=== PATIENT | female | born 1990 | race Caucasian/White ===

== ENCOUNTER 2019-09-07 17:32 | Emergency (ER) | payer MEDICAID ==
[~2019-09-07] VITALS: Ht 177.8 cm; Wt 60.6 kg
[~2019-09-07 17:32] MED LIST: DIPH-423 PO; IBUP-1984 PO; LIDOcaine 1% W/epiNEPHrine 1:100,000 20ml vial ONE; LORA1TAB PO; NO HOME MEDS; QUET-1 PO; ZIPR20CA2 PO; ZOF4T PO; no known home meds
[2019-09-07 17:57] VITALS: BP 127/78
[2019-09-07] MEDS ORDERED: BACDS PO (19:44)
== END 2019-09-07 20:00 | disposition home or self-care (01) ==
LOC: ER 17:33
DX: N76.4 Abscess of vulva (principal); F31.9 Bipolar disorder, unspecified; F12.90 Cannabis use, unspecified, uncomplicated; F15.90 Other stimulant use, unspecified, uncomplicated; Z90.49 Acquired absence of other specified parts of digestive tract; Z59.0 Homelessness; Z56.0 Unemployment, unspecified; Z88.8 Allergy status to other drugs, medicaments and biological substances; Z79.2 Long term (current) use of antibiotics; Z79.899 Other long term (current) drug therapy
CPT/HCPCS: 56405; 99284

== ENCOUNTER 2020-01-07 10:02 | Emergency (ER) | payer MEDICAID, OTHER ==
[~2020-01-07] VITALS: Ht 177.8 cm; Wt 61.4 kg
[~2020-01-07 10:02] MED LIST changes: -LIDOcaine 1% W/epiNEPHrine 1:100,000 20ml vial ONE
[2020-01-07 10:11] VITALS: BP 126/81
[2020-01-07] MEDS ORDERED: ERYT1OIN6 RIGHTEYE (10:32)
[2020-01-07] MEDS ORDERED: DOXY100C76 PO (10:32)
== END 2020-01-07 10:35 | disposition home or self-care (01) ==
LOC: ER 10:02
DX: H00.015 Hordeolum externum left lower eyelid (principal); L03.211 Cellulitis of face; F12.90 Cannabis use, unspecified, uncomplicated; F15.90 Other stimulant use, unspecified, uncomplicated; Z90.49 Acquired absence of other specified parts of digestive tract; Z59.0 Homelessness; Z56.0 Unemployment, unspecified; Z88.8 Allergy status to other drugs, medicaments and biological substances; Z79.899 Other long term (current) drug therapy
CPT/HCPCS: 99283

== ENCOUNTER 2020-01-21 09:48 | Emergency (ER) | payer MEDICAID, OTHER ==
[~2020-01-21] VITALS: Ht 177.8 cm; Wt 70.0 kg
[~2020-01-21 09:48] MED LIST changes: +ERYT1OIN6 RIGHTEYE
[2020-01-21] MEDS ORDERED: normal saline 1000ML IV soln IVB ONE (10:10)
[2020-01-21] MEDS ORDERED: LORazepam 2 mg/ml vial IV ONE (10:10)
--- NOTE | 2020-01-21 10:50 | NUR ---
US tech at bedside for study as ordered.
[2020-01-21 13:26] VITALS: BP 127/65
== END 2020-01-21 14:24 | disposition home or self-care (01) ==
LOC: ER 09:48
DX: O26.891 Other specified pregnancy related conditions, first trimester (principal); R10.31 Right lower quadrant pain; R10.2 Pelvic and perineal pain; F12.90 Cannabis use, unspecified, uncomplicated; F15.90 Other stimulant use, unspecified, uncomplicated; Z90.49 Acquired absence of other specified parts of digestive tract; Z59.0 Homelessness; Z56.0 Unemployment, unspecified; Z88.8 Allergy status to other drugs, medicaments and biological substances; Z79.899 Other long term (current) drug therapy; Z3A.10 10 weeks gestation of pregnancy
CPT/HCPCS: 76700; 76801; 76856; 96361; 96374; 99285; J2060; J7030; 76802

== ENCOUNTER 2020-01-24 08:12 | Emergency (ER) | payer MEDICAID, OTHER ==
[~2020-01-24] VITALS: Ht 172.7 cm; Wt 80.0 kg
[2020-01-24] MEDS ORDERED: diphenhydrAMINE 50 mg/ml inj IV ONE (08:25)
[2020-01-24] MEDS ORDERED: metoclopramide 5 mg/ml inj IV ONE (08:25)
[2020-01-24] MEDS ORDERED: normal saline 1000ML IV soln IVB ONE ×3 (08:25→10:45)
[2020-01-24 09:04] LABS: BASOPHILS % (AUTO) 0.3 % (0-1); EOSINOPHILS % (AUTO) 0.1 % (0-6); HEMATOCRIT 28.8 % (35.0-45.0); HEMOGLOBIN 9.6 g/dl (12.0-16.0); LYMPHOCYTES % (AUTO) 6.5 % (21-51); MEAN CORPUSCULAR HEMOGLOBIN 29.3 PG (27.0-31.0); MEAN CORPUSCULAR HGB CONC 33.4 g/dL (33.0-36.5); MEAN CORPUSCULAR VOLUME 87.9 FL (78-98); MEAN PLATELET VOLUME 7.2 FL (7.4-10.4); MONOCYTES # (AUTO) 0.5 X10'3 (0-0.9); MONOCYTES % (AUTO) 3.2 % (2-12); NEUTROPHILS # (AUTO) 13.9 X10'3 (1.8-7.7); NEUTROPHILS % (AUTO) 89.9 % (42-75); PLATELET COUNT 374 X10'3 (140-440); RED BLOOD COUNT 3.27 X10'6 (4.20-5.60); WHITE BLOOD COUNT 15.4 X10'3 (4.5-11.0)
[2020-01-24 09:40] LABS: ALANINE AMINOTRANSFERASE 15 U/L (12-78); ALBUMIN 4.1 G/DL (3.4-5.0); ALBUMIN/GLOBULIN RATIO 1.4 (1.1-1.5); ALKALINE PHOSPHATASE 41 IU/L (46-116); ANION GAP 16 (8-16); ASPARTATE AMINO TRANSFERASE 14 U/L (10-37); BILIRUBIN,TOTAL 0.6 MG/DL (0.1-1.0); CALCIUM 8.6 MG/DL (8.5-10.1); CHLORIDE 101 MMOL/L (99-107); CREATININE 1.13 MG/DL (0.40-0.90); GLUCOSE 175 MG/DL (70-104); LIPASE < 50 U/L (73-393); POTASSIUM 3.8 MMOL/L (3.5-5.1); SODIUM 139 MMOL/L (135-145); TOTAL CARBON DIOXIDE 21.6 MMOL/L (24-32); eGFR 57 ML/MIN
[2020-01-24 09:47] LABS: BLOOD UREA NITROGEN 18 MG/DL (7-18); BUN/CREATININE RATIO 15.9 (6.6-38.0)
[2020-01-24 09:49] LABS: BETA HCG,QUANTITATIVE 2636 mIU/ml
[2020-01-24] MEDS ORDERED: labetalol 20mg/4ml (5mg/ml) syringe IV ONE (10:00)
--- NOTE | 2020-01-24 10:01 | NUR ---
PT SLEEPING QUIETLY. NO ACUTE DISTRESS NOTED AT THIS TIME
--- NOTE | 2020-01-24 10:21 | NUR ---
US tech at bedside.
[2020-01-24] MEDS ORDERED: ondansetron/PF 4mg/2ml inj IV ONE (10:45)
[2020-01-24] MEDS ORDERED: morphine 4 MG/ML inj SYRINge IV PRN (10:45)
[2020-01-24 11:23] LABS: CLARITY,URINE CLOUDY (Clear); COLOR,URINE YELLOW (Yellow); GLUCOSE, URINE NEGATIVE (Neg); KETONES,URINE TRACE mg/dl (Neg); LEUKOCYTE ESTERASE ,URINE NEGATIVE (Neg); NITRITES, URINE NEGATIVE (Neg); OCCULT BLOOD,URINE NEGATIVE (Neg); PH,URINE 5.5 (4.8-8.0); PROTEIN,URINE TRACE mg/dl (Neg); UA COLLECTION TYPE CLN CATCH MIDSTREAM; UROBILINOGEN,URINE 0.2 E.U/dL (0.2-1.0)
[2020-01-24 11:29] LABS: HYALINE CASTS >30 /LPF (NEGATIVE); MUCUS STRANDS MANY /LPF (Neg); SQUAMOUS EPITHELIAL CELL,UR MODERATE /LPF (FEW)
[2020-01-24 11:30] LABS: CAL OXALATE CRYSTALS 4+ /HPF (NEGATIVE); TRANSITIONAL EPI CELLS,URINE FEW /HPF
[2020-01-24 11:31] LABS: BACTERIA,URINE FEW /HPF (Neg); RBC,URINE 0-2 /HPF (0-2); URINE AMPHETAMINE SCREEN POSITIVE (Neg); URINE BARBITUATE SCREEN NEGATIVE (Neg); URINE BENZODIAZEPINES SCREEN NEGATIVE (Neg); URINE CANNABINOID SCREEN POSITIVE (Neg); URINE COCAINE SCREEN NEGATIVE (Neg); URINE METHADONE SCREEN NEGATIVE (Neg); URINE OPIATE SCREEN NEGATIVE (Neg); URINE PHENCYCLIDINE SCREEN NEGATIVE (Neg); WBC,URINE 0-4 /HPF (0-4)
--- NOTE | 2020-01-24 11:38 | NUR ---
report called to glenn pulido at [facility].
[2020-01-24 11:43] VITALS: BP 117/89
== END 2020-01-24 11:47 | disposition short-term general hospital (02) ==
LOC: ER 08:12
DX: O00.90 Unspecified ectopic pregnancy without intrauterine pregnancy (principal); R11.2 Nausea with vomiting, unspecified; F12.90 Cannabis use, unspecified, uncomplicated; F15.90 Other stimulant use, unspecified, uncomplicated; F17.210 Nicotine dependence, cigarettes, uncomplicated; Z90.49 Acquired absence of other specified parts of digestive tract; Z59.0 Homelessness; Z56.0 Unemployment, unspecified; Z79.2 Long term (current) use of antibiotics; Z79.899 Other long term (current) drug therapy; Z3A.01 Less than 8 weeks gestation of pregnancy
CPT/HCPCS: 36415; 76817; 80053; 80305; 81001; 83690; 84145; 84702; 85025; 96361; 96374; 96375; 99285; J1200; J2270; J2405; J2765; J7030; 99284

== ENCOUNTER 2020-05-03 18:10 | Emergency (ER) | payer MEDICAID, OTHER ==
[~2020-05-03] VITALS: Ht 177.8 cm; Wt 63.6 kg
[~2020-05-03 18:10] MED LIST changes: -ERYT1OIN6 RIGHTEYE
[2020-05-03 18:15] VITALS: BP 120/76
== END 2020-05-03 20:35 | disposition left against medical advice (07) ==
LOC: ER 18:10
DX: S80.261A Insect bite (nonvenomous), right knee, initial encounter (principal); Z53.21 Procedure and treatment not carried out due to patient leaving prior to being seen by health care provider; W57.XXXA Bitten or stung by nonvenomous insect and other nonvenomous arthropods, initial encounter; Y93.89 Activity, other specified; Y92.89 Other specified places as the place of occurrence of the external cause; Y99.8 Other external cause status

== ENCOUNTER 2020-06-10 04:53 | Emergency (ER) | payer MEDICAID ==
[~2020-06-10] VITALS: Ht 177.8 cm; Wt 63.2 kg
[2020-06-10] MEDS ORDERED: ondansetron/PF 4mg/2ml inj IV ONE ×2 (05:15→07:50)
[2020-06-10] MEDS: dextrose 5%-normal saline 1,000 ML IV SCH ×3 (05:29→07:15)
[2020-06-10 05:50] LABS: ALANINE AMINOTRANSFERASE 18 U/L (12-78); ALBUMIN 4.2 G/DL (3.4-5.0); ALBUMIN/GLOBULIN RATIO 1.1 (1.1-1.5); ALKALINE PHOSPHATASE 39 IU/L (46-116); ANION GAP 12 (8-16); ASPARTATE AMINO TRANSFERASE 13 U/L (10-37); BILIRUBIN,TOTAL 0.5 MG/DL (0.1-1.0); BLOOD UREA NITROGEN 15 MG/DL (7-18); BUN/CREATININE RATIO 20.8 (6.6-38.0); CALCIUM 9.3 MG/DL (8.5-10.1); CHLORIDE 103 MMOL/L (99-107); CREATININE 0.72 MG/DL (0.40-0.90); GLUCOSE 151 MG/DL (70-104); SODIUM 138 MMOL/L (135-145); TOTAL CARBON DIOXIDE 22.9 MMOL/L (24-32); TOTAL PROTEIN 7.9 G/DL (6.4-8.2); eGFR > 90 ML/MIN
--- NOTE | 2020-06-10 06:30 | NUR ---
pt unable to void at this time.Dr. Cisneros aware.
[2020-06-10] MEDS ORDERED: ONDA4TAB6 PO (06:31)
[2020-06-10] MEDS ORDERED: DOXY1TAB3 PO (06:34)
[2020-06-10 07:05] LABS: CLARITY,URINE CLEAR (Clear); COLOR,URINE YELLOW (Yellow); GLUCOSE, URINE >=1000 mg/dl (Neg); KETONES,URINE >=80 mg/dl (Neg); LEUKOCYTE ESTERASE ,URINE NEGATIVE (Neg); NITRITES, URINE NEGATIVE (Neg); OCCULT BLOOD,URINE NEGATIVE (Neg); PROTEIN,URINE NEGATIVE (Neg); UROBILINOGEN,URINE 0.2 E.U/dL (0.2-1.0)
[2020-06-10 07:06] LABS: UA COLLECTION TYPE CLN CATCH MIDSTREAM
[2020-06-10 07:18] LABS: BACTERIA,URINE NONE SEEN /HPF (Neg); MUCUS STRANDS FEW /LPF (Neg); RBC,URINE 0-2 /HPF (0-2); SQUAMOUS EPITHELIAL CELL,UR FEW /LPF (FEW); WBC,URINE 0-4 /HPF (0-4)
[2020-06-10 08:07] VITALS: BP 134/82
[2020-06-11] MEDS ORDERED: ONDA4TAB6 PO (19:35)
== END 2020-06-10 08:09 | disposition home or self-care (01) ==
LOC: ER 04:53
DX: O21.9 Vomiting of pregnancy, unspecified (principal); F31.9 Bipolar disorder, unspecified; F17.200 Nicotine dependence, unspecified, uncomplicated; F12.90 Cannabis use, unspecified, uncomplicated; Z90.49 Acquired absence of other specified parts of digestive tract; Z59.0 Homelessness; Z56.0 Unemployment, unspecified; Z88.8 Allergy status to other drugs, medicaments and biological substances; Z79.899 Other long term (current) drug therapy; Z3A.11 11 weeks gestation of pregnancy
CPT/HCPCS: 36415; 80053; 81001; 96374; 96376; 99284; J2405; J7042

== ENCOUNTER 2020-06-11 17:07 | Emergency (ER) | payer MEDICAID ==
[~2020-06-11 17:07] MED LIST changes: +DOXY1TAB3 PO; +ONDA4TAB6 PO
[2020-06-11] MEDS ORDERED: normal saline 1000ML IV soln IVB ONE (18:00)
[2020-06-11] MEDS ORDERED: ondansetron/PF 4mg/2ml inj IV ONE (18:00)
[2020-06-11] MEDS ORDERED: proCHLORperazine 10 MG/2 ml inj IV ONE (19:15)
[2020-06-11] MEDS ORDERED: diphenhydrAMINE 50 mg/ml inj IV ONE (19:15)
[2020-06-11] MEDS ORDERED: ONDA4TAB6 PO (19:35)
[2020-06-11 20:03] VITALS: BP 135/80
== END 2020-06-11 20:01 | disposition home or self-care (01) ==
LOC: ER 17:08
DX: O21.9 Vomiting of pregnancy, unspecified (principal); F31.9 Bipolar disorder, unspecified; F12.90 Cannabis use, unspecified, uncomplicated; Z59.0 Homelessness; Z56.0 Unemployment, unspecified; Z72.89 Other problems related to lifestyle; Z90.49 Acquired absence of other specified parts of digestive tract; Z3A.01 Less than 8 weeks gestation of pregnancy; Z37.9 Outcome of delivery, unspecified; Z88.8 Allergy status to other drugs, medicaments and biological substances; Z79.899 Other long term (current) drug therapy
CPT/HCPCS: 96361; 96374; 96375; 99284; J0780; J1200; J2405; J7030

== ENCOUNTER 2024-02-15 18:19 | Emergency (ER) | payer MEDICAID ==
[~2024-02-15] VITALS: Ht 177.8 cm; Wt 64.5 kg
[2024-02-15 19:26] VITALS: BP 114/83; PULSE 100; RESP 18; O2SAT 99
[2024-02-15 19:28] LABS: BASOPHILS % (AUTO) 0.7 % (0-1); EOSINOPHILS # (AUTO) 0.1 X10'3 (0-0.9); EOSINOPHILS % (AUTO) 1.1 % (0-6); HEMATOCRIT 41.6 % (35.0-45.0); LYMPHOCYTES # (AUTO) 2.5 X10'3 (1.1-4.8); LYMPHOCYTES % (AUTO) 38.4 % (21-51); MEAN CORPUSCULAR HEMOGLOBIN 29.4 PG (27.0-31.0); MEAN CORPUSCULAR HGB CONC 33.6 g/dL (33.0-36.5); MEAN CORPUSCULAR VOLUME 87.5 FL (78-98); MEAN PLATELET VOLUME 6.8 FL (7.4-10.4); MONOCYTES # (AUTO) 0.4 X10'3 (0-0.9); MONOCYTES % (AUTO) 6.8 % (2-12); NEUTROPHILS # (AUTO) 3.5 X10'3 (1.8-7.7); PLATELET COUNT 312 X10'3 (140-440); RED BLOOD COUNT 4.75 X10'6 (4.20-5.60); RED CELL DISTRIBUTION WIDTH 13.6 % (11.5-14.5); WHITE BLOOD COUNT 6.6 X10'3 (4.5-11.0)
[2024-02-15 19:31] LABS: BILIRUBIN,URINE NEGATIVE (Neg); CLARITY,URINE SLIGHTLY CLOUDY (Clear); COLOR,URINE YELLOW (Yellow); GLUCOSE, URINE NEGATIVE (Neg); KETONES,URINE TRACE mg/dl (Neg); LEUKOCYTE ESTERASE ,URINE NEGATIVE (Neg); NITRITES, URINE NEGATIVE (Neg); OCCULT BLOOD,URINE NEGATIVE (Neg); PROTEIN,URINE TRACE mg/dl (Neg); UROBILINOGEN,URINE 0.2 E.U/dL (0.2-1.0)
[2024-02-15 19:32] LABS: URINE HCG NEGATIVE (NEG)
[2024-02-15 19:33] LABS: UA COLLECTION TYPE CLN CATCH MIDSTREAM
[2024-02-15 19:37] LABS: RBC,URINE 0-2 /HPF (0-2); WBC,URINE 0-4 /HPF (0-4)
[2024-02-15 19:38] LABS: BACTERIA,URINE FEW /HPF (Neg); CAL OXALATE CRYSTALS 3+ /HPF (NEGATIVE); SQUAMOUS EPITHELIAL CELL,UR FEW /LPF (FEW)
[2024-02-15 19:44] LABS: URINE AMPHETAMINE SCREEN POSITIVE (Neg); URINE BARBITUATE SCREEN NEGATIVE (Neg); URINE BENZODIAZEPINES SCREEN NEGATIVE (Neg); URINE CANNABINOID SCREEN POSITIVE (Neg); URINE COCAINE SCREEN NEGATIVE (Neg); URINE METHADONE SCREEN NEGATIVE (Neg); URINE OPIATE SCREEN NEGATIVE (Neg); URINE PHENCYCLIDINE SCREEN NEGATIVE (Neg)
[2024-02-15 20:02] LABS: ANION GAP 11 (8-16); BLOOD UREA NITROGEN 13 MG/DL (7-18); BUN/CREATININE RATIO 15.7 (10.0-20.0); CALCIUM 9.3 MG/DL (8.5-10.1); CHLORIDE 104 MMOL/L (99-107); CREATININE 0.83 MG/DL (0.40-0.90); GLUCOSE 102 MG/DL (70-104); POTASSIUM 3.8 MMOL/L (3.5-5.1); SODIUM 140 MMOL/L (135-145); TOTAL CARBON DIOXIDE 25.3 MMOL/L (24-32); eCRCL 98 ML/MIN; eGFR 79 ML/MIN
[2024-02-15 20:03] LABS: ALANINE AMINOTRANSFERASE 12 U/L (12-78); ALBUMIN 4.6 G/DL (3.4-5.0); ALBUMIN/GLOBULIN RATIO 1.3 (1.1-1.5); ALKALINE PHOSPHATASE 67 IU/L (46-116); ASPARTATE AMINO TRANSFERASE 8 U/L (10-37); BILIRUBIN,TOTAL 0.4 MG/DL (0.1-1.0); TOTAL PROTEIN 8.2 G/DL (6.4-8.2)
[2024-02-15 20:11] LABS: ETHANOL 47 MG/DL (<10); SALICYLATE 4.2 MG/DL (4.0-20.0); THYROID STIMULATING HORMONE 1.21 ulU/ml (0.34-4.50)
[2024-02-15 20:13] LABS: ACETAMINOPHEN < 2.0 UG/ML (10-30)
[2024-02-15 20:46] VITALS: TEMP 98.8
== END 2024-02-15 20:48 | disposition home or self-care (01) ==
LOC: ER 18:20
DX: F41.9 Anxiety disorder, unspecified (principal); Z20.822 Contact with and (suspected) exposure to COVID-19; F32.A Depression, unspecified; F99 Mental disorder, not otherwise specified; F10.129 Alcohol abuse with intoxication, unspecified; Z79.899 Other long term (current) drug therapy; Z88.8 Allergy status to other drugs, medicaments and biological substances; Z79.1 Long term (current) use of non-steroidal anti-inflammatories (NSAID); Z98.890 Other specified postprocedural states; Y90.9 Presence of alcohol in blood, level not specified
CPT/HCPCS: 36415; 80053; 80305; 80320; 80329; 81001; 81025; 84443; 85025; 87811; 99283

== ENCOUNTER 2024-03-20 15:33 | Emergency (ER) | payer MEDICAID ==
[~2024-03-20] VITALS: Ht 177.8 cm; Wt 67.0 kg
[2024-03-20 15:44] VITALS: BP 131/84; PULSE 102; RESP 16; TEMP 98.8; O2SAT 99
[2024-03-20 16:54] LABS: BASOPHILS % (AUTO) 0.5 % (0-1); EOSINOPHILS # (AUTO) 0.1 X10'3 (0-0.9); EOSINOPHILS % (AUTO) 0.9 % (0-6); HEMATOCRIT 37.5 % (35.0-45.0); HEMOGLOBIN 12.5 g/dl (12.0-16.0); LYMPHOCYTES # (AUTO) 0.9 X10'3 (1.1-4.8); LYMPHOCYTES % (AUTO) 10.9 % (21-51); MEAN CORPUSCULAR HEMOGLOBIN 29.7 PG (27.0-31.0); MEAN CORPUSCULAR HGB CONC 33.4 g/dL (33.0-36.5); MEAN CORPUSCULAR VOLUME 89.1 FL (78-98); MEAN PLATELET VOLUME 7.2 FL (7.4-10.4); MONOCYTES # (AUTO) 0.6 X10'3 (0-0.9); MONOCYTES % (AUTO) 7.1 % (2-12); NEUTROPHILS # (AUTO) 6.8 X10'3 (1.8-7.7); NEUTROPHILS % (AUTO) 80.6 % (42-75); PLATELET COUNT 210 X10'3 (140-440); RED BLOOD COUNT 4.21 X10'6 (4.20-5.60); RED CELL DISTRIBUTION WIDTH 14.4 % (11.5-14.5); WHITE BLOOD COUNT 8.5 X10'3 (4.5-11.0)
[2024-03-20 17:01] LABS: ALBUMIN 3.9 G/DL (3.4-5.0); ANION GAP 9 (8-16); BLOOD UREA NITROGEN 13 MG/DL (7-18); BUN/CREATININE RATIO 18.3 (10.0-20.0); CALCIUM 8.7 MG/DL (8.5-10.1); CHLORIDE 102 MMOL/L (99-107); CREATININE 0.71 MG/DL (0.40-0.90); GLUCOSE 107 MG/DL (70-104); POTASSIUM 3.4 MMOL/L (3.5-5.1); SODIUM 137 MMOL/L (135-145); TOTAL CARBON DIOXIDE 25.6 MMOL/L (24-32); eCRCL 119 ML/MIN; eGFR > 90 ML/MIN
== END 2024-03-20 17:14 | disposition left against medical advice (07) ==
LOC: ER 15:34
DX: M79.621 Pain in right upper arm (principal); M79.89 Other specified soft tissue disorders; Z53.21 Procedure and treatment not carried out due to patient leaving prior to being seen by health care provider
CPT/HCPCS: 36415; 80048; 85025

== ENCOUNTER 2025-05-27 20:07 | Emergency (ER) | payer MEDICAID ==
[~2025-05-27] VITALS: Ht 177.8 cm; Wt 63.6 kg
[2025-05-27 20:21] VITALS: TEMP 98.7
--- NOTE | 2025-05-27 20:52 | Physician Documentation ---
History of Present Illness ~ Chief Complaint: Knee Pain Stated Complaint: POST OP COMPLICATIONS Time Seen by MD: 20:52 Primary Medical Doctor: [facility] HPI 34-year-old female, recent knee surgery, who presents with knee pain and swelling She tells me that on April 27, she had surgery on her right knee with Dr. Cedillo, at [facility]. She had been doing well until the past couple of days when she developed increased swelling, pain, redness and warmth to the lateral knee. She thinks that her entire knee is swollen. She is concerned there was an infection. She feels generally unwell. She is not able to bend h er knee completely due to pain and swelling. She does report a little bit of purulent drainage from the incision site. No definite fevers or chills. No redness extending up to her thigh or groin. Tetanus witin 5 years: Yes Medication Reconciliation Allergies: Coded Allergies: haloperidol (Verified Allergy, Unknown, 05/27/25) paliperidone (Verified Allergy, Unknown, 05/27/25) Miscellaneous Medications [no known home meds], (Reported) Discontinued Medications Clindamycin HCl (Clindamycin HCl), 1 CAP PO Q8H Discontinued Reason: patient no longer taking Diphenhydramine Hcl* (Benadryl*), 50 MG PO BID, (Reported) Discontinued Reason: patient no longer taking Doxylamine/Pyridoxine HCl (Diclegis Dr 10-10 mg Tablet), 2 TAB PO as directed Discontinued Reason: patient no longer taking Home Med List (No Home Medications), (Reported) Discontinued Reason: patient no longer taking Ibuprofen* (Motrin*), 400 MG PO Q8H Discontinued Reason: patient no longer taking Lorazepam* (Ativan*), 1 MG PO BID, (Reported) Discontinued Reason: patient no longer taking Ondansetron Hcl (Zofran), 1 TAB PO Q6H PRN for nausea/vomiting Discontinued Reason: patient no longer taking Ondansetron Hcl (Zofran), 1 TAB PO Q8H Discontinued Reason: patient no longer taking Ondansetron ODT* (Zofran ODT*), 4 MG PO Q6H Discontinued Reason: patient no longer taking Quetiapine Fumarate* (Seroquel*), 200 MG PO HS, (Reported) Discontinued Reason: patient no longer taking Ziprasidone Hcl (Geodon), 40 MG PO BID, (Reported) Discontinued Reason: patient no longer taking Ziprasidone Hcl (Geodon), 40 MG PO HS, (Reported) Discontinued Reason: patient no longer taking Past Medical History Past Medical History: Bipolar Past Surgical History: appendectomy Alcohol Use: Sober Drug Use: marijuana Lives In: Homeless Occupation: unemployed Review of Systems Constitutional: Reports: malaise; Denies: fever Musculoskeletal: Reports: joint pain, joint swelling Integumentary: Reports: rash Physical Exam Vital Signs: Temperature: 98.7, Source: Oral, Heart Rate: 115, Respiratory Rate: 16, BP: 126/81, Pulse Oximetry: 100, Weight: 63.640 Oxygen Flow Rate: 0 Physical Exam General: This is a pleasant and overall nontoxic appearing young female HEENT: Atraumatic, oropharynx is moist Heart: Tachycardic, appears regular Lungs: normal work of breathing, normal oxygen saturation on room air Extremities: Right lower extremity: The patient has a healing surgical incision over the lateral right knee. There is significant erythema, swelling and warmth around the knee from the midline extending around the lateral side of the knee, and down the lateral calf. There was no significant redness or warmth to the medial knee. She is diffusely tender to palpation in the area of erythema only. There was no purulent drainage noted from the surgical incision at this time. She d oes have limited knee flexion due to pain and swelling. She does have a joint effusion on palpation. No streaking redness up the thigh. Normal perfusion to the right foot. Neuro: Alert and oriented Psychiatric: Calm and cooperative with exam Progress Results/Orders Results/Orders Orders - KEARA JOYCE MD Culture Blood (05/27/25 21:00) Page Hospitalist (05/27/25 21:46) Completed Orders - KEARA JOYCE MD Cbc/Diff (05/27/25 21:00) CMP (05/27/25 21:00) ESR (05/27/25 21:00) C-Reactive Protein (05/27/25 21:00) Lacticsepsis (05/27/25 21:00) Ketorolac Trometh 15mg/Ml Vial (Toradol (05/27/25 21:00) Clindamycin 600mg/D5w 50ml (Cleocin 600m (05/28/25 02:00) Hgb A1c (05/27/25 21:10) Vital Signs 05/27/25 05/27/25 05/27/25 05/27/25 20:21 21:10 21:12 21:34 Temp 98.7 Pulse 115 114 Resp 16 16 14 16 B/P (MAP) 126/81 136/84 (101) Pulse Ox 100 98 O2 Flow Rate 0 Laboratory Tests Test 05/27/25 21:10 White Blood Count 9.0 Red Blood Count 4.15 L Hemoglobin 12.4 Hematocrit 37.1 Mean Corpuscular Volume 89.4 Mean Corpuscular Hemoglobin 29.9 Mean Corpuscular Hemoglobin Concent 33.4 Red Cell Distribution Width 14.4 Platelet Count 238 Mean Platelet Volume 7.3 L Neutrophils (%) (Auto) 80.6 H Lymphocytes (%) (Auto) 11.4 L Monocytes (%) (Auto) 7.0 Eosinophils (%) (Auto) 0.6 Basophils (%) (Auto) 0.4 Neutrophils # (Auto) 7.2 Lymphocytes # (Auto) 1.0 L Monocytes # (Auto) 0.6 Eosinophils # (Auto) 0.1 Basophils # (Auto) 0.0 CBC Comment Erythrocyte Sedimentation Rate 10 Sodium Level 136 Potassium Level 3.5 Chloride Level 103 Carbon Dioxide Level 26.1 Anion Gap 7 L Blood Urea Nitrogen 15 Creatinine 0.84 Estimated GFR/1.73 m2 78 BUN/Creatinine Ratio 17.9 Glucose Level 124 H Hemoglobin A1c 5.2 Lactic Acid Level 0.9 Calcium Level 9.0 Total Bilirubin 0.7 Aspartate Amino Transf (AST/SGOT) 15 Alanine Aminotransferase (ALT/SGPT) 17 Alkaline Phosphatase 82 C-Reactive Protein 10.84 H Total Protein 7.2 Albumin 3.7 Globulin 3.5 Albumin/Globulin Ratio 1.1 Chemistry Comments Microbiology Date/Time Source Procedure Growth Status 05/27/25 21:16 Blood Arm Left Blood Culture - Preliminary NEGATIVE (LESS THAN 24 HOURS) Resulted Consults/PCP Consults/PCP : Additional Comment Consult: I spoke to the on-call orthopedic team. They recommend against arthrocentesis, do recommend admission for IV antibiotics Consult: I spoke to the internal medicine service, for admission in the hospital Medical Decision Making Additional Comment Differential includes cellulitis, wound infection, septic arthritis, sepsis Assessment The patient presents with leg redness and swelling. Per her history and exam this appears likely consistent with a postoperative wound infection with cellulitis. Septic arthritis possible but seems less likely given the appearance of the wound and redness. Orthopedics team was consulted as above. She was started on antibiotics. Unfortunately she then decided to leave AMA. The plan was to give her a dose of IV antibiotics and discharged with oral antibiotics, but she then eloped from the emergency department. Departure Time of Disposition: 22:38 Disposition: LEFT AGAINST MEDICAL ADVICE Impression: Primary Impression: Cellulitis of leg Condition: Guarded Discharge Instructions: Septic Arthritis Referrals: NO PRIMARY CARE PROVIDER (PCP) Education Educated: Patient Educated regarding: need for follow up Signature Scribe Signature: na Attestation: KEARA Henderson MD May 27, 2025 20:52
[2025-05-27 21:12] VITALS: BP 136/84; PULSE 114; O2SAT 98
[2025-05-27 21:34] VITALS: RESP 16
[2025-05-27] MEDS: ketorolac trometh 15mg/ml vial 15 MG/ML ML IV ONE (21:34)
[2025-05-27 21:36] LABS: MEAN PLATELET VOLUME 7.3 FL (7.4-10.4); RED CELL DISTRIBUTION WIDTH 14.4 % (11.5-14.5)
[2025-05-27 21:42] LABS: CREATININE 0.84 MG/DL (0.40-0.90); TOTAL CARBON DIOXIDE 26.1 MMOL/L (24-32); eCRCL 95 ML/MIN; eGFR 78 ML/MIN
[2025-05-27] MEDS ORDERED: magnesium sulf-water 4G/100mL 100 ML IV PRN (22:20)
[2025-05-27] MEDS ORDERED: magnesium sulf-water 2g/50mL 50 ML IV PRN (22:20)
[2025-05-27] MEDS ORDERED: potassium Cl 20 mEq SR tablet PO PRN ×2 (22:20)
[2025-05-27] MEDS ORDERED: magnesium Cl slow-release 64mg tablet PO PRN (22:20)
[2025-05-27] MEDS ORDERED: ondansetron/PF 4mg/2ml inj IV PRN (22:20)
[2025-05-27] MEDS ORDERED: potassium Cl 40MEQ/1/2NS 520ml 520 ML IV PRN (22:20)
[2025-05-27] MEDS ORDERED: ketorolac trometh 15mg/ml vial 15 MG/ML ML IV PRN (22:20)
[2025-05-27] MEDS ORDERED: CLIN300C54 PO (22:41)
[2025-05-28] MEDS ORDERED: enoxaparin 40mg/0.4ml syringe SUBCUT SCH (08:00)
[2025-05-28] MEDS ORDERED: docusate sod 100mg capsule PO SCH (08:00)
[2025-05-28] MEDS ORDERED: K and/or MAG REPLACEMENT MC SCH (08:00)
== END 2025-05-27 23:21 | disposition left against medical advice (07) ==
LOC: ER 20:07 → UNDOADMIN 22:25 → ED HOLD 22:25
DX: L03.115 Cellulitis of right lower limb (principal); F31.9 Bipolar disorder, unspecified; F10.90 Alcohol use, unspecified, uncomplicated; F12.90 Cannabis use, unspecified, uncomplicated; Z79.899 Other long term (current) drug therapy; Z90.49 Acquired absence of other specified parts of digestive tract; Y90.9 Presence of alcohol in blood, level not specified
CPT/HCPCS: 36415; 80053; 83036; 83605; 85025; 85651; 86140; 87040; 96374; 99285; J1885; G0378

== ENCOUNTER 2025-05-28 00:47 | Inpatient (IN) | payer MEDICAID ==
[~2025-05-28] VITALS: Ht 177.8 cm; Wt 65.9 kg
[~2025-05-28 00:47] MED LIST changes: +CLIN300C54 PO
--- NOTE | 2025-05-28 01:24 | Physician Documentation ---
History of Present Illness ~ Chief Complaint: Knee Pain Stated Complaint: KNEE PAIN Time Seen by MD: 01:23 Primary Medical Doctor: HELIO HARTMAN The patient was seen here earlier in the emergency department, has a infection to her right leg after recent knee surgery. She left AMA, prior to receiving antibiotics. She returns now, and is in agreement with getting antibiotics and admission. No other new or different symptoms. Tetanus witin 5 years: Yes Medication Reconciliation Allergies: Coded Allergies: haloperidol (Verified Allergy, Unknown, 05/27/25) paliperidone (Verified Allergy, Unknown, 05/27/25) Miscellaneous Medications [no known home meds], (Reported) Discontinued Medications Clindamycin HCl (Clindamycin HCl), 1 CAP PO Q8H Discontinued Reason: patient no longer taking Diphenhydramine Hcl* (Benadryl*), 50 MG PO BID, (Reported) Discontinued Reason: patient no longer taking Doxylamine/Pyridoxine HCl (Diclegis Dr 10-10 mg Tablet), 2 TAB PO as directed Discontinued Reason: patient no longer taking Home Med List (No Home Medications), (Reported) Discontinued Reason: patient no longer taking Ibuprofen* (Motrin*), 400 MG PO Q8H Discontinued Reason: patient no longer taking Lorazepam* (Ativan*), 1 MG PO BID, (Reported) Discontinued Reason: patient no longer taking Ondansetron Hcl (Zofran), 1 TAB PO Q6H PRN for nausea/vomiting Discontinued Reason: patient no longer taking Ondansetron Hcl (Zofran), 1 TAB PO Q8H Discontinued Reason: patient no longer taking Ondansetron ODT* (Zofran ODT*), 4 MG PO Q6H Discontinued Reason: patient no longer taking Quetiapine Fumarate* (Seroquel*), 200 MG PO HS, (Reported) Discontinued Reason: patient no longer taking Ziprasidone Hcl (Geodon), 40 MG PO BID, (Reported) Discontinued Reason: patient no longer taking Ziprasidone Hcl (Geodon), 40 MG PO HS, (Reported) Discontinued Reason: patient no longer taking Past Medical History Past Medical History: Bipolar Past Surgical History: appendectomy Alcohol Use: Sober Drug Use: marijuana Lives In: Homeless Occupation: unemployed Review of Systems Constitutional: Denies: fever Musculoskeletal: Reports: joint pain, joint swelling Physical Exam Vital Signs: Temperature: 98.2, Source: Temporal, Heart Rate: 98, Respiratory Rate: 18, BP: 124/69, Pulse Oximetry: 98, Weight: 65.900 Oxygen Flow Rate: 0 Physical Exam General: This is an overall nontoxic young female Heart: Mild tachycardic, appears regular Lungs: No respiratory distress, normal oxygen saturation on room air Extremities: Right lower extremity: The patient continues to have redness and swelling as per the previous exam. See previous note from today. Psychiatric: Calm and cooperative with exam Progress Results/Orders Results/Orders Orders - KEARA JOYCE MD Hospitalist (05/28/25 01:25) Completed Orders - KEARA JOYCE MD Clindamycin 600mg/D5w 50ml (Cleocin 600m (05/28/25 01:45) Medications Received in ER Medications (Trade) Dose Ordered Sig/Arti Route PRN Reason Start Time Stop Time Status Last Admin Dose Admin Clindamycin HCl/ Dextrose 50 ml @ 100 mls/hr ONCE ONCE IV 05/28/25 01:45 05/28/25 02:14 DC 05/28/25 01:46 100 MLS/HR Vital Signs 05/28/25 05/28/25 01:14 01:26 Temp 98.2 Pulse 98 Resp 18 16 B/P (MAP) 124/69 Pulse Ox 98 O2 Flow Rate 0 Consults/PCP Consults/PCP : Additional Comment Consult: I spoke to the internal medicine service, for admission in the hospital Medical Decision Making Additional Comment The patient was seen previously and diagnosed with an infection to her right leg. She left AMA, but now has returned. She will be admitted to the hospital for IV antibiotics and orthopedic consult. Departure Impression: Primary Impression: Cellulitis of leg Referrals: NO PRIMARY CARE PROVIDER (PCP) Signature Scribe Signature: na Attestation: KEARA Henderson MD May 28, 2025 01:24
[2025-05-28] MEDS ORDERED: magnesium Cl slow-release 64mg tablet PO PRN (02:05)
[2025-05-28] MEDS ORDERED: magnesium hydroxide 30ml (MOM) UD suspension PO PRN (02:05)
[2025-05-28] MEDS ORDERED: magnesium sulf-water 2g/50mL 50 ML IV PRN (02:05)
[2025-05-28] MEDS ORDERED: ondansetron/PF 4mg/2ml inj IV PRN (02:05)
[2025-05-28] MEDS ORDERED: HYDROcodone/acetaminophen 5mg/325mg tablet PO PRN (02:05)
[2025-05-28] MEDS ORDERED: magnesium sulf-water 4G/100mL 100 ML IV PRN (02:05)
[2025-05-28] MEDS ORDERED: potassium Cl 40MEQ/1/2NS 520ml 520 ML IV PRN (02:05)
[2025-05-28] MEDS ORDERED: mag hydrox/Alum hydrox/simeth 30ml oral suspension PO PRN (02:05)
[2025-05-28] MEDS ORDERED: potassium Cl 20 mEq SR tablet PO PRN ×2 (02:05)
--- NOTE | 2025-05-28 02:18 | HISTORY AND PHYSICAL-Residence ---
History & Physical Providers to CC Resident Creating Document: BLAKE ALCARAZ CC: DONNA VÁZQUEZ MD ~ History of Present Illness Primary Medical Doctor: HELIO Reason for Admit\Complaint: Right knee pain History of Present Illness Patient is a 34-year-old female with no significant past medical history who came to the ED due to right knee pain and swelling. Patient reports that 3 days ago she started experiencing right knee swelling, redness which extends down to her legs and warmth, as well as increasing pain. She has also been experiencing numbness in the area. She denies fevers, chills, or any other subjective symptoms. Patient had a snowboarding knee injury in October and underwent reconstructive surgeries of RCA, medial collateral ligament, meniscal repair and internal brace in February and April of this year by Dr. Cedillo. ED doctor consult ed Dr. Hodges who recommended starting patient on IV clindamycin. Allergies: Coded Allergies: haloperidol (Verified Allergy, Unknown, 05/27/25) paliperidone (Verified Allergy, Unknown, 05/27/25) Home Medications Home Medications Active Clindamycin HCl 300 Mg Capsule 1 Cap PO Q8H 10 Days Zofran (Ondansetron Hcl) 4 Mg Tablet 1 Tab PO Q8H 10 Days [place] 10-10 mg Tablet (Doxylamine/Pyridoxine HCl) 1 Each Tablet.dr 2 Tab PO DIRECTED 24 Days Two tablets at bedtime on day 1 and 2; if symptoms persist, take 1 tablet in morning and 2 tablets at bedtime on day 3; if symptoms persist, may increase to 1 tablet in morning, 1 tablet mid-afternoon, and 2 tablets at bedtime on day 4 Zofran (Ondansetron Hcl) 4 Mg Tablet 1 Tab PO Q6H PRN 5 Days Zofran ODT* (Ondansetron HCl) 4 Mg Tab.rapdis 4 Mg PO Q6H may sub tablets or phenergan 25mg every 6 hours #12 Motrin* (Ibuprofen) 400 Mg Tablet 400 Mg PO Q8H Reported Seroquel* (Quetiapine Fumarate) 100 Mg Tablet 200 Mg PO HS Benadryl* (Diphenhydramine HCl) 25 Mg Capsule 50 Mg PO BID Ativan* (Lorazepam) 1 Mg Tablet 1 Mg PO BID Geodon (Ziprasidone Hcl) 20 Mg Capsule 40 Mg PO HS Geodon (Ziprasidone Hcl) 20 Mg Capsule 40 Mg PO BID [no known home meds] No Home Medications (Home Med List) Each Past Medical History Past Medical History None Past Surgical History Surgical History Comment Right knee ACL, medial collateral ligament, meniscal repair and internal brace. X2 in February and April of this year Family History Family History: FH: leukemia GRANDFATHER OR GRANDMOTHER Past Social History Smoking: Cigarettes (Five cigarettes a day) Alcohol Use: Occasionally Drug Use: Marijuana Lives with: Alone Lives In: Home Occupation: unemployed ROS ROS All systems were reviewed and found negative except for pertinent positives mentioned in HPI Exam Vitals: Vital Signs Date Time Temp Pulse Resp B/P (MAP) Pulse Ox O2 Delivery O2 Flow Rate FiO2 05/28/25 01:26 16 05/28/25 01:14 98.2 98 98 0 General: General: awake, alert oriented to place, time, and person HEENT: No pallor present, no icterus, moist mucous membranes Neck: No masses and tenderness Resp: Unlabored. Lungs clear to auscultation bilaterally. Chest: Normal expansion Cardiovascular: Regular Rate and rhythm, normal S1 and S2 without murmur, rub or gallop Abdomen: Soft and nontender, no organomegaly, no guarding and rigidity, bowel sounds present Neuro: No focal weakness in the upper and lower limb muscles, power of the muscles 5/5 bilateral upper and lower extremities, normal reflexes bilaterally. Cranial nerves intact Extremities: Right knee is significantly swollen, with erythema, warmth and tenderness to palpation. Range of motion this decreased. Well-healed surgical scar with no drainage. No cyanosis,clubbing or edema Skin: Warm and Dry. No lesions Psych: Normal affect Advance Care Planning Advanced Care plannin - 30 Minutes Additional Plan Patient is a 34-year-old female with no significant past medical history who came to the ED due to right knee pain and swelling. Admitted for evaluation of septic arthritis of right knee. Right knee cellulitis Possible septic arthritis S/p RCA, meniscus, and medial collateral ligament repair in February and April of this year Labs are unremarkable except for elevated CRP Dr. Hodges was consulted by ED physician who recommended starting patient on clindamycin Start clindamycin 600 mg q.6, single dose of Vanco given Continue pain management with p.r.n. morphine/[place] Pending right knee CT Tobacco abuse Nicotine patch p.r.n. Code Status: Full code DVT prophylaxis: Lovenox Analgesia/sedation: Morphine/[place] Nutrition: Regular diet PT: Ordered Prognosis: Guarded Disposition: Admit to ortho floor. Continue medical management. Pending further recommendations from ortho Blake Burger MD Internal Medicine Resident PGY-2 I saw and evaluated the patient and discussed the case with the resident team. Agree with assessment and plan as documented Thank you Date of Service: May 28, 2025 Billing Provider: DONNA VÁZQUEZ MD, LEONARDO LUIS May 28, 2025 02:18 DONNA VÁZQUEZ MD May 28, 2025 07:55
[2025-05-28 03:13] VITALS: BP 121/67; PULSE 81; RESP 18; TEMP 98; O2SAT 98
[2025-05-28 04:49] VITALS: RESP 18; O2SAT 98
[2025-05-28 07:30] VITALS: RESP 20; O2SAT 100
[2025-05-28] MEDS: docusate sod 100mg capsule PO SCH (08:00)
[2025-05-28] MEDS: K and/or MAG REPLACEMENT MC SCH (08:00)
[2025-05-28] MEDS: normal saline 1000ml 1,000 ML IVB ONE (10:07)
[2025-05-28] MEDS: normal saline 1000ml 1,000 ML IV SCH (10:08)
[2025-05-28] MEDS ORDERED: iohexol 300mg/ml 100ml inj. ONE (11:08)
[2025-05-28 11:40] LABS: HCG SERUM QL NEGATIVE
[2025-05-28 13:21] LABS: URINE AMPHETAMINE SCREEN POSITIVE (Neg); URINE BARBITUATE SCREEN NEGATIVE (Neg); URINE BENZODIAZEPINES SCREEN NEGATIVE (Neg); URINE CANNABINOID SCREEN POSITIVE (Neg); URINE COCAINE SCREEN NEGATIVE (Neg); URINE METHADONE SCREEN NEGATIVE (Neg); URINE OPIATE SCREEN NEGATIVE (Neg); URINE PHENCYCLIDINE SCREEN NEGATIVE (Neg)
--- NOTE | 2025-05-28 13:26 | DISCHARGE SUMMARY ---
Discharge Summary Providers to CC ~ Discharge Summary Admission Diagnosis: Septic arthritis Hospital Course DATE OF ADMISSION: 05/28/25 DATE OF DISCHARGE: 05/28/25 Discharge Diagnosis\Comment: Right knee cellulitis Possible septic arthritis s/p RCA, meniscus, and medial collateral ligament repair (February and April 2025) Tobacco abuse Left AMA Operations\Procedures: None Consultants: Orthopedic surgeon Dash Jones Complications: Left AMA Condition on DC: Unstable Discharge Summary: Patient left AMA yesterday and presented again. Patient was examined in the morning. Patient is not medically cleared for discharge. However, patient left AMA this afternoon despite explaining risks associated with leaving AMA. Patient left stating she needs to leave to take care of her dog. Physical Exam General: Generalized weakness, A&Ox 3, NAD HEENT: Normocephalic, PERRLA Neck: Supple, trachea midline, no JVD Chest: Clear to auscultation bilaterally Cardiovascular: RRR, S1&S2 GI: Soft and nontender Extremities: Erythematous, edematous, tender left lower extremity [employer]: CN II-XII intact, no focal deficits Musculoskeletal: No paraspinal muscle tenderness, no muscle spasm Skin: Warm and intact *Problems/Diagnosis: (1) Cellulitis of leg Status: Acute Total Time Spent on D/C: > 30 Minutes Date of Service: May 28, 2025 Billing Provider: STEPH ADAMSON Common Visit Codes: NOT BILLABLE Problem Qualifiers (1) Cellulitis of leg: Qualified Codes: L03.115 - Cellulitis of right lower limb STEPH ADAMSON May 28, 2025 13:26
[2025-05-28] MEDS ORDERED: enoxaparin 40mg/0.4ml syringe SQ SCH (20:00)
== END 2025-05-28 13:01 | disposition left against medical advice (07) | DRG 383 ==
LOC: ER 00:47 → ED HOLD 02:06 → SUR 3N 03:10
PROVIDERS: ADMIT Internal Medicine; ATTEND Nurse Practitioner Family
DX: L03.115 Cellulitis of right lower limb (principal); Z53.21 Procedure and treatment not carried out due to patient leaving prior to being seen by health care provider; Z90.49 Acquired absence of other specified parts of digestive tract; Z59.00 Homelessness unspecified; Z79.899 Other long term (current) drug therapy; Z88.8 Allergy status to other drugs, medicaments and biological substances
CPT/HCPCS: 36415; 80305; 83735; 84703; 87081; 96365; 96366; 99285; G0378; J3490; J7030; Q9967